=== PATIENT | male | born 1965 | race Caucasian/White ===

== ENCOUNTER 2016-05-29 11:04 | Emergency (ER) | payer SELFPAY ==
[~2016-05-29] VITALS: Ht 182.9 cm; Wt 91.0 kg
[2016-05-29 11:05] VITALS: BP 188/95; PULSE 66; RESP 16; TEMP 97.9; O2SAT 97
--- NOTE | 2016-05-29 12:00 | PD ---
HPI Chief Complaint: ENT Complaint Time Seen by Provider: 12:00 Travel History International Travel<30 days: No Contact w/Intl Traveler<30days: No Traveled to known affect area: No History of Present Illness HPI 51-year-old male presents to the emergency Department with complaint of an ear plug that is stuck in his left ear canal. He thought something was wrong with his ear last night and when he went to ride his motorcycle this morning he noticed that a piece of the earplug that he uses was missing and realized it was probably secondary his ear. His did try to take it out with tweezers without success. He denies ear pain. Denies fever, chills, nausea, vomiting. No known allergies. No other modifying factors or associated signs and symptoms. PFSH Past Medical History Hx Anticoagulant Therapy: No Cardiovascular Problems: No Chemotherapy: No Cerebrovascular Accident: No Diabetes: No Respiratory: No Social History Tobacco Use: No Allergies-Medications (Allergen,Severity, Reaction): Coded Allergies: No Known Allergies (Unverified , 05/29/16) Reported Meds & Prescriptions Reported Meds & Active Scripts Active Ibuprofen 800 Mg Tab 800 Mg PO Q6HR PRN Ciprofloxacin (Ciprofloxacin HCl) 500 Mg Tab 500 Mg PO BID 7 Days Review of Systems Except as stated in HPI: all other systems reviewed are Neg Physical Exam Narrative GENERAL: Well-nourished, well-developed male patient, in no acute distress SKIN: Warm and dry. HEAD: Atraumatic. Normocephalic. EYES: Pupils equal and round. No scleral icterus. No injection or drainage. ENT: Mucosa pink and moist. Airway patent. EARS: Bilateral pinnae and external canals appear within normal limits. Right tympanic membranes without erythema, dullness or perforation. Unable to visualize left tympanic membranes secondary to foreign body: After foreign body removal the tympanic membranes appears to have a small area of rupture with bright red drainage. NECK: Trachea midline. CARDIOVASCULAR: Regular rate. RESPIRATORY: No accessory muscle use. GASTROINTESTINAL: Flat. MUSCULOSKELETAL: No obvious deformities. No clubbing. No cyanosis. No edema. NEUROLOGICAL: Awake and alert. Oriented 3. No obvious cranial nerve deficits. Motor grossly within normal limits. Normal speech. PSYCHIATRIC: Appropriate mood and affect; insight and judgment normal. Data Data Last Documented VS Vital Signs Date Time Temp Pulse Resp B/P Pulse Ox O2 Delivery O2 Flow Rate FiO2 05/29/16 11:05 97.9 66 16 188/95 97 Room Air MDM Medical Decision Making Medical Screen Exam Complete: Yes Emergency Medical Condition: Yes Medical Record Reviewed: Yes Differential Diagnosis Ear foreign body, ruptured eardrum, otitis externa, otitis media Narrative Course 51-year-old male with an earplug stuck in his left ear. See my procedure note for foreign body removal. Left eardrum appears to have a small perforation after removal of the ear plug. There is bright red drainage coming from the ear. Patient denies ear pain. I will prescribe ciprofloxacin for home for suspected ruptured eardrum. Instructed patient to follow up with ENT as needed. Patient verbalizes understanding and agreement with treatment plan. Patient is medically cleared and stable for discharge. Discussed reasons to return to the emergency department. Instructed patient to follow up with primary care provider. Patient agrees with treatment plan. The patients vital signs are stable and the patient is stable for outpatient follow-up and treatment. Patient discharged home, stable and in no acute distress. Procedures Procedure Narrative Foreign Body Removal Left ear: 2 sutures are used to remove an ear plug from the left ear. Patient tolerated well. Diagnosis Primary Impression: Foreign body in left ear Qualified Code: T16.2XXA - Foreign body in left ear, initial encounter Additional Impression: Ruptured ear drum Qualified Code: H72.92 - Ruptured ear drum, left Referrals: Ear / Nose / Throat Specialist Primary Care Physician Patient Instructions: Ear Foreign Body (ED), General Instructions, Ruptured Eardrum (ED) Additional Instructions: Take antibiotics as prescribed and complete full course Ibuprofen or Tylenol as directed and as needed to reduce pain and fever Avoid getting water in the ears Do not put anything in the ears; including Q-tips 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
[2016-05-29] MEDS ORDERED: IBUP800T23 PO (12:24)
[2016-05-29] MEDS ORDERED: CIPR500T2 PO (12:24)
== END 2016-05-29 12:44 | disposition home or self-care (01) ==
LOC: NEPB 11:04
DX: T16.2XXA Foreign body in left ear, initial encounter (principal); H72.92 Unspecified perforation of tympanic membrane, left ear
CPT/HCPCS: 69200